=== PATIENT | female | born 1995 | race Caucasian/White ===

== ENCOUNTER 2016-03-16 16:58 | Emergency (ER) | payer SELFPAY ==
[~2016-03-16] VITALS: Ht 157.5 cm; Wt 42.0 kg
[~2016-03-16 16:58] MED LIST: Z.0.NO CURRENT MEDS
[2016-03-16 17:00] VITALS: BP 130/93; PULSE 95; RESP 15; TEMP 98.2; O2SAT 98
== END 2016-03-16 17:40 | disposition left against medical advice (07) ==
LOC: NED 16:58
DX: Z03.89 Encounter for observation for other suspected diseases and conditions ruled out (principal)
CPT/HCPCS: 99281